=== PATIENT | male | born 1935 | race Caucasian/White ===

== ENCOUNTER 2020-07-05 08:03 | Outpatient (REF) | payer MEDICARE, SELFPAY ==
--- NOTE | 2020-07-05 13:27 | MHC.AU.AEV ---
Adult Audiological Evaluation AUD- Audiology Adult New Evaluation Start: 07/05/20 13:17 Freq: Status: Active Protocol: Activity Type Activity Date Activity User E-Sign Co-Sign Detail Recorded Client Recorded Date Recorded By Document 07/05/20 13:18 MANASA [id number] 07/05/20 13:26 MANASA 07/05/20 13:18 Adult Audiological Evaluation [Date of Visit] -Date of Visit 07/05/20 [Reason For Appointment] -Reason for Appointment Audiologic re- evaluation due to increasing difficulties understanding speech. -Does patient feel they have a hearing Yes loss? -If Yes, Which Ear? Both Ears [Previous Testing] -Has hearing been tested previously? Yes -Previous Hearing Test Results 06/07/2019 Borderline normal hearing levels at 250 Hz dropping to a moderately- severe high frequency sensorineural hearing loss with 88% speech understanding at 75 dB HL, both ears. [Medical History] -Medical History Dizziness or Unsteadiness -Medical History Jay Jay reports he has not experienced any further episodes of dizziness since last tested in 2019. [Otoscopy] -Otoscopy- Right Ear Unremarkable -Otoscopy- Left Ear Unremarkable [Tympanometry] -Tympanometry- Right Ear Normal Middle Ear System ( Type A) -Tympanometry- Left Ear Normal Middle Ear System ( Type A) [Hearing Test Methods] -Transducer(s) Used Insert Earphones,Bone Conduction -Method Conventional Audiometry -Stimuli Used Pure Tones [Hearing- Right Ear] -Description of Hearing- Right Ear Mild dropping to moderately- severe sensorineural hearing loss. [Hearing- Left Ear] -Description of Hearing- Left Ear Mild dropping to moderately- severe sensorineural hearing loss. [Speech Recognition Threshold (SRT)] -Method Used Monitored Live Voice -Stimuli Used Spondee Words -Speech Recognition Threshold (SRT)- 35 dB HL Right Ear -Speech Recognition Threshold (SRT)- 35 dB HL Left Ear [Word Discrimination] -Method: Recorded Lists -Word Lists Used: NU-6 -Word Discrimination- Right Ear 84% at 75 dB HL -Word Discrimination- Left Ear 80% at 75 dB HL [Compared to Most Recent Evaluation:] -Compared to most recent evaluation: There is no significant change in hearing thresholds and speech discrimination compared to 2019 results. [Recommendations] -Recommendations Audiological re -evaluation in one year.,Trial with amplification is recommended. ,Medical clearance from a physician is required before fitting.,A Hearing Aid Fitting has been scheduled. [Diagnosis] -Primary Diagnosis: H90.3 Bilateral Sensorineural Hearing Loss -Secondary Diagnosis: N/A [Services Performed] -Services Performed Comprehensive Audiological Evaluation (CPT 40524), Tympanometry ( CPT 53520) Signature [Signature] -Provider Juan David Irvin, [facility]
== END 2020-07-05 08:04 | disposition home or self-care (01) ==
LOC: HO.SH 08:03
PROVIDERS: Visit Provider Internal Medicine
DX: H90.3 Sensorineural hearing loss, bilateral (principal)
CPT/HCPCS: 92557; 92567

== ENCOUNTER 2020-07-24 09:57 | Outpatient (REF) | payer SELFPAY | END 2020-07-24 09:58 | disposition home or self-care (01) | LOC: HO.HAP 09:57 | PROVIDERS: PCP Internal Medicine; Visit Provider Internal Medicine | DX: Z46.1 Encounter for fitting and adjustment of hearing aid (principal) | CPT/HCPCS: 92700; V5260 ==

== ENCOUNTER 2020-08-07 11:25 | Outpatient (REF) | payer SELFPAY | END 2020-08-07 11:26 | disposition home or self-care (01) | LOC: HO.HAP 11:25 | PROVIDERS: PCP Internal Medicine; Referring Provider Internal Medicine; Visit Provider Internal Medicine | DX: Z13.89 Encounter for screening for other disorder (principal) | CPT/HCPCS: 92700 ==

== ENCOUNTER 2021-07-31 08:12 | Outpatient (REF) | payer MEDICARE, SELFPAY ==
--- NOTE | 2021-07-31 13:11 | MHC.AU.AHA ---
Adult Audiological Evaluation Date of Visit: 07/31/21 Reason for Appointment: Audiological re-evaluation to monitor the status of Mr. Iqbal's hearing loss. He has a known bilateral, sensorineural hearing loss and uses hearing aids binaurally. He denies any significant changes to his hearing or medical history since his last visit. [place] [facility] [place] Mild sloping to moderately-severe sensorineural hearing loss bilaterally. Medical History: Medical History: Dizziness or Unsteadiness Medical History: Has had some vertigo in the past, but none recently. High cholesterol. Hearing Instrument History- Right Ear: Snap Attacher: [employer] Model: Scrybe HS-R Serial Number: [id number] Battery Size: Rechargeable Repair Warranty: 08/14/2023 Loss and Damage Warranty: 08/14/2023 Dispensed By: [facility] Date of Fittin07/24/2020 Hearing Instrument History- Left Ear: Snap Attacher: [employer] Model: Scrybe HS-R Serial Number: [id number] Battery Size: Rechargeable Warranty: 08/14/2023 Loss and Damage Warranty: 08/14/2023 Dispensed By: [facility] Date of Fittin07/24/2020 Otoscopy: Right Ear: Unremarkable Left Ear: Unremarkable Tympanometry: Tympanometry performed due to: To assess integrity of the middle ear system Right Ear: Normal Middle Ear System (Type A) Left Ear: Normal Middle Ear System (Type A) Hearing Evaluation: Transducer(s) Used: Insert Earphones, Bone Conduction Method: Conventional Audiometry Stimuli Used: Pure Tones Right Ear: Description of Hearing: Normal hearing at 250 Hz, sloping to a mild to moderately-severe sensorineural hearing loss from 500-8000 Hz. Left Ear: Description of Hearing: Mild sloping to moderately-severe sensorineural hearing loss from 500-8000 Hz. Speech Recognition Threshold (SRT): Method Used: Monitored Live Voice Stimuli Used: Spondee Words Right Ear: 35 dBHL Left Ear: 35 dBHL Word Discrimination: Method: Recorded Lists Word Lists Used: NU-6 Right Ear: 88% at 75 dBHL Left Ear: 84% at 75 dBHL Comparison: Compared to the most recent evaluation: Hearing is stable. Recommendations: Audiological re-evaluation in one year. Hearing aid maintenance performed today. Hearing aid(s) reprogrammed with updated test results. Diagnosis: Primary Diagnosis: H90.3 Bilateral Sensorineural Hearing Loss Services Performed: Comprehensive Audiological Evaluation (CPT 86088) Tympanometry (CPT 64325) Signature: Provider: Juan David Paz, CCC-A
== END 2021-07-31 08:13 | disposition home or self-care (01) ==
LOC: HO.SH 08:12
PROVIDERS: Visit Provider Physician Assistant Medical
DX: H90.3 Sensorineural hearing loss, bilateral (principal)
CPT/HCPCS: 92557; 92567

== ENCOUNTER 2022-03-01 10:51 | Outpatient (REF) | payer SELFPAY | END 2022-03-01 10:52 | disposition home or self-care (01) | LOC: HO.HAP 10:51 | PROVIDERS: Visit Provider Internal Medicine | DX: Z46.1 Encounter for fitting and adjustment of hearing aid (principal); H90.3 Sensorineural hearing loss, bilateral | CPT/HCPCS: V5267 ==

== ENCOUNTER 2022-08-05 13:54 | Outpatient (REF) | payer SELFPAY ==
--- NOTE | 2022-08-07 08:25 | MHC.AU.HFU ---
Hearing Instrument Follow-Up- Binaural Date of Visit: 08/05/22 Right Ear: Lorena Sarmiento 1600 HS-R, #[id number] Repair Warranty: 08/14/2023 Loss and Damage Warranty: 08/14/2023 Service Plan: 08/14/2023 Battery Size: Rechargeable Type of Wax Guard: HearClear Dispensed By: [facility] Date of Fittin07/24/2020 Left Ear: Lorena Sarmiento 1600 HS-R, #[id number] Repair Warranty: 08/14/2023 Loss and Damage Warranty: 08/14/2023 Service Plan: 08/14/2023 Battery Size: Rechargeable Type of Wax Guard: Hear Clear Dispensed By: [facility] Date of Fittin07/24/2020 Follow-Up Summary: Patient reports that for the last week, his right hearing aid has been softer than his left one. He has tried cleaning them and changing the wax guards, but it did not help the sound. Hearing aids were both inspected. The right side was producing sound, but it is significantly weaker than it should be. No wax in receivers. No visible damage. Microphone filters changed- no difference in sound. Patient was given the left hearing aid back. The right side was sent to [facility] for repair under warranty. Recommendations: Patient will be contacted when materials have arrived. Diagnosis Code(s): Primary Diagnosis: H90.3 Bilateral Sensorineural Hearing Loss Signature: Provider: Andre Hanna, CCC-A
== END 2022-08-05 13:55 | disposition home or self-care (01) ==
LOC: HO.HAP 13:54
PROVIDERS: Visit Provider Physician Assistant Medical
DX: Z13.89 Encounter for screening for other disorder (principal)

== ENCOUNTER 2022-08-15 10:35 | Outpatient (REF) | payer SELFPAY | END 2022-08-15 10:36 | disposition home or self-care (01) | LOC: HO.HAP 10:35 | PROVIDERS: Visit Provider Internal Medicine | DX: Z13.89 Encounter for screening for other disorder (principal) ==

== ENCOUNTER 2023-02-18 07:48 | Outpatient (REF) | payer MEDICARE, SELFPAY ==
--- NOTE | 2023-02-18 10:07 | MHC.AU.HFU ---
Hearing Instrument Follow-Up- Binaural Date of Visit: 02/18/23 Right Ear: Lorena Sarmiento 1600 HS-R, #[id number], pink Repair Warranty: 08/14/2023 Loss and Damage Warranty: 08/14/2023 Service Plan: 08/14/2023 Battery Size: Rechargeable Type of Wax Guard: HearClear Dispensed By: [facility] Date of Fittin07/24/2020 Left Ear: Lorena Gouldio 1600 HS-R, #[id number], pink Repair Warranty: 08/14/2023 Loss and Damage Warranty: 08/14/2023 Service Plan: 08/14/2023 Battery Size: Rechargeable Type of Wax Guard: Hear Clear Dispensed By: [facility] Date of Fittin07/24/2020 Follow-Up Summary: The patient is here today for an updated audiogram and hearing aid check. Hearing is stable bilaterally- see audiogram for report. The patient reports his left hearing aid is not working well. Visual inspection reveals cerumen/debris in the left hearing aid wax guard. Right and left wax guards were replaced and the hearing aids were brushed. Listening check reveals improved sound bilaterally. Software update was performed. Data logging reveals 12 hours/day of use. No programming changes were made. The patient immediately reported improved sound. Reviewed cleaning and general hearing aid care. Recommended weekly brushing and replacing wax guards every 3-6 months. Reviewed hearing aid warranty expires 08/14/23 and charges associated once they are no longer in warranty. Patient indicated understanding. No charge today. Additional follow-up as needed. Diagnosis Code(s): Primary Diagnosis: H90.3 Bilateral Sensorineural Hearing Loss Signature: Provider: Juan David Suarez, [facility]
== END 2023-02-18 07:49 | disposition home or self-care (01) ==
LOC: HO.SH 07:48
PROVIDERS: Visit Provider Physician Assistant Medical
DX: H90.3 Sensorineural hearing loss, bilateral (principal)
CPT/HCPCS: 92557

== ENCOUNTER 2023-03-12 11:56 | Outpatient (REF) | payer MEDICARE, SELFPAY | END 2023-03-12 11:57 | disposition home or self-care (01) | LOC: HO.HAP 11:56 | PROVIDERS: Visit Provider Internal Medicine | DX: Z13.89 Encounter for screening for other disorder (principal) ==

== ENCOUNTER 2023-05-07 13:16 | Outpatient (REF) | payer SELFPAY | END 2023-05-07 13:17 | disposition home or self-care (01) | LOC: HO.HAP 13:16 | PROVIDERS: Visit Provider Internal Medicine | DX: Z13.89 Encounter for screening for other disorder (principal) ==

== ENCOUNTER 2023-07-18 08:47 | Outpatient (REF) | payer SELFPAY | END 2023-07-18 08:48 | disposition home or self-care (01) | LOC: HO.HAP 08:47 | PROVIDERS: Visit Provider Internal Medicine | DX: Z13.89 Encounter for screening for other disorder (principal) ==

== ENCOUNTER 2023-07-30 13:38 | Outpatient (REF) | payer SELFPAY | END 2023-07-30 13:39 | disposition home or self-care (01) | LOC: HO.HAP 13:38 | PROVIDERS: Visit Provider Internal Medicine | DX: Z13.89 Encounter for screening for other disorder (principal) ==

== ENCOUNTER 2024-07-05 11:18 | Outpatient (REF) | payer SELFPAY | END 2024-07-05 11:19 | disposition home or self-care (01) | LOC: HO.HAP 11:18 | PROVIDERS: Visit Provider Internal Medicine | DX: Z13.89 Encounter for screening for other disorder (principal) ==

== ENCOUNTER 2024-07-06 12:17 | Outpatient (REF) | payer SELFPAY | END 2024-07-06 12:18 | disposition home or self-care (01) | LOC: HO.HAP 12:17 | PROVIDERS: Visit Provider Physician Assistant Medical | DX: Z46.1 Encounter for fitting and adjustment of hearing aid (principal); H90.3 Sensorineural hearing loss, bilateral | CPT/HCPCS: 92593 ==

== ENCOUNTER 2024-07-08 09:54 | Outpatient (REF) | payer SELFPAY ==
--- NOTE | 2024-07-09 15:44 | MHC.AU.HA3 ---
Hearing Instrument Follow-Up- Binaural Date of Visit: 07/09/24 Right Ear: Model Kyler, Color, Serial Number: Lorena Sarmiento 1600 HS-R, #[id number], aneta [employer] Sorter Repair Warranty: 08/14/2023 Recyclable Products Sorter Loss and Damage Warranty: 08/14/2023 [facility] Service Plan: 08/14/2023 Battery Size: Rechargeable Rehabilitation Center Manager/Slim Tube: Earmold/Dome/CShell/SlimTip: Type of Wax Guard: HearClear Dispensed By: [facility] Date of Fittin07/24/2020 Left Ear: Model Kyler, Color, Serial Number: Lorena Sarmiento 1600 HS-R, #[id number], pink Rec[employer]able Products Sorter Repair Warranty: 08/14/2023 Recyclable Products Sorter Loss and Damage Warranty: 08/14/2023 [facility] Service Plan: 08/14/2023 Battery Size: Rechargeable Rehabilitation Center Manager/Slim Tube: Earmold/Dome/CShell/SlimTip: Type of Wax Guard: Hear Clear Dispensed By: [facility] Date of Fittin07/24/2020 Follow-Up Summary: Left aid dropped off, . Found wax guard clogged. Cleaned aid, replaced marck covers and wax guard. Listening check positive. Recommendations: Recommendations: Hearing instrument follow-up or maintenance as needed. Diagnosis Code(s): Primary Diagnosis: H90.3 Bilateral Sensorineural Hearing Loss Signature: Provider: Andre Montalvo, CCC-A
== END 2024-07-08 09:55 | disposition home or self-care (01) ==
LOC: HO.HAP 09:54
PROVIDERS: Visit Provider Internal Medicine
DX: Z13.89 Encounter for screening for other disorder (principal)

== ENCOUNTER 2024-07-09 16:20 | Outpatient (REF) | payer SELFPAY | END 2024-07-09 16:21 | disposition home or self-care (01) | LOC: HO.HAP 16:20 | PROVIDERS: Visit Provider Internal Medicine | DX: Z46.1 Encounter for fitting and adjustment of hearing aid (principal); H90.3 Sensorineural hearing loss, bilateral | CPT/HCPCS: 92593 ==

== ENCOUNTER 2025-01-24 10:50 | Outpatient (REF) | payer SELFPAY ==
--- OUTSIDE RECORDS SUMMARY | 2025-01-24 12:56 | XMS_ITS | Clinical Summary ---
Author Organization [address] Address [address] [place] [phone] Phone Care Team Providers Care 911 Emergency Services Dispatcher Name Role Phone Joel Clark Primary Care Provider [phone] [phone] Allergies Active Allergy Reactions Criticality Noted Date Comments Minocycline Hcl 08/06/2005 Other Reaction(s): Rash/Dermatitis Medications latanoprost (XALATAN) 0.005 % ophthalmic solution 04/26/2021 Active MULTIVITAMIN ORAL Take 1 Tab by mouth daily. Active aspirin 81 mg EC tablet 1 TABLET DAILY Active pravastatin (PRAVACHOL) 80 mg tablet Take 1 tablet (80 mg total) by mouth 1 (one) time each day. 90 tablet 3 12/03/2024 Active Active Problems Problem Noted Date Diagnosed Date Medical orders for life-sust aining treatment (MOLST) form in chart 12/07/2024 Overview (12/07/2024): MOLST form completed 12/07/2024 Cardiopulmonary resuscitation - attempt resuscitation Ventilation for a patient in respiratory distress - use noninvasive ventilation (CPAP) Transfer to hospital -transfer to hospital Dialysis - undecided Artificial nutrition - did not discuss Artificial hydration - use artificial nutrition but short term only Glaucoma 07/05/2024 Impaired fasting glucose 07/12/2011 Assessment & Plan (12/03/2024 3:28 PM EST): Orders: Lipid panel with reflex to direct LDL; Future Comprehensive metabolic panel; Future Hemoglobin A1c; Future Diverticulitis of colon without hemorrhage 07/22 Overview (07/05/2024): Diverticulosis of colon (without mention of hemorrhage) Incidental finding at colonoscopy 07/22/2008. Assessment & Plan (12/03/2024 3:28 PM EST): Orders: Lipid panel with reflex to direct LDL; Future Comprehensive metabolic panel; Future Hemoglobin A1c; Future Hyperlipidemia 08/06/2005 Overview (07/05/2024): Other and unspecified hyperlipidemia Assessment & Plan (12/03/2024 3:28 PM EST): Orders: Lipid panel with reflex to direct LDL; Future Comprehensive metabolic panel; Future Hemoglobin A1c; Future Encounters Date Type Department Care Team Description 12/03/2024 3:00 PM EST Office Visit Adult Medicine [address] [phone] Joel Clark PA Routine general medical examination at a health care facility (Primary Dx); Need for tetanus, diphtheria, and acellular pertussis (Tdap) vaccine; Need for vaccination against Streptococcus pneumoniae; Other hyperlipidemia; Impaired fasting glucose; Diverticulitis of colon without hemorrhage from Last 3 Months Immunizations Name Administration Dates Next Due H1N1 Inj Preservative Free 10/27/2009 Influenza trivalent, 0.5mL ( Fluad) 65yo and older 07/13/2024 Influenza trivalent, 0.5mL ( Fluzone High-dose) 65yo and older 08/12/2023,07/23/2022,08/20/2021,2017,07/08/2017 Influenza trivalent, with preservative (Fluzone; Afluria) 6mo and older 06/20/2016,07/13/2015,06/30/2014,2012,06/28/2011,06/22/2010,06/06/2009,1 ,07/19/2007,09/09/2006, 005 Pneumococcal conjugate 13 va lent (Prevnar 13, PCV13) 2mo and older 12/30/2014 Pneumococcal conjugate 20 va lent (Prevnar 20, PCV 20) 2mo and older 12/03/2024 RSV, bivalent, protein subun it RSVpreF, 0.5mL, Preservative Free (Arexvy) 60yo and older 02/07/2024 Td Tetanus diptheria (Tdvax) 7yo and older 11/17/2009,03/12/1999 Tdap Tetanus diptheria acell ular pertussis (Boostrix; Adacel) 7yo and older 12/03/2024 Zoster Live 06/29/2013 Zoster recombinant (Shingrix ) 19yo and older 06/05/2022,03/13/2022 Surgical History Surgery Date Site/Laterality Comments TONSILLECTOMY PROCEDURE: HISTORICAL TONSILLECTOMY OTHER SURGICAL HISTORY PROCEDURE: HISTORICAL CA BASAL CELL CATARACT EXTRACTION PROCEDURE: HISTORICAL CATARACT REMOVAL; COMMENT: on right COLONOSCOPY 01/20/2003 PROCEDURE: MD COLONOSCOPY FLX DX W/COLLJ SPEC WHEN PFRMD; COMMENT: Negative COLONOSCOPY W/ POLYPECTOMY 07/22/2008 PROCEDURE: MD COLSC FLX W/RMVL OF TUMOR POLYP LESION SNARE TQ; COMMENT: 2 small polyps: Tubular adenomas COLONOSCOPY 2012 PROCEDURE: MD COLONOSCOPY FLX DX W/COLLJ SPEC WHEN PFRMD; COMMENT: no polyps Medical History Medical History Date Comments Historical Medical DX DX:Other a nd unspecified malignant neoplasm of skin of other and unspecified parts of face Personal history of colonic polyps 08/06/2005 DX:Personal history of colonic polyps; COMMENT: Small polyp in the , negative colonoscopy 01/20/2003, diminutive polyps x 2 at colonoscopy 07/22/2008: Diverticulosis of colon (wit hout mention of hemorrhage) 07/22/2008 DX:Diverticulosis of colon ( without mention of hemorrhage); COMMENT: Incidental finding at colonoscopy 07/22/2008. Impaired fasting glucose 07/12/2011 DX:Impa ired fasting glucose Actinic keratosis, hx of DX:Acti yajaira keratosis, hx of History of basal cell carcinoma 08/06/2005 DX:History of basal cell carcinoma; COMMENT: BCC 12/11 nose (nodular) 11/03 nose (nodular), followed by drapery sewer hand Glaucoma DX:Glaucoma History of actinic keratoses 09/14/2009 DX: History of actinic keratoses; COMMENT: Actinic keratosis 09/06 left cheek Family History Medical History Relation Name Comments Other Dermatological Disorders Maternal Grandfather Specifics unknown....nonmelanotic cut. malig. by description Relation Name Status Comments Father (Age 69) mi dm Maternal Grandfather Mother (Age 75) dm Sister Alive Social History Tobacco Use Types Packs/Day Years Used Date Smoking Tobacco: Former Smokeless Tobacco: Never Alcohol Use Standard Drinks/Week Comments Yes 0 (1 standard drink = 0.6 oz pur e alcohol) Sex and Gender Information Value Date Recorded Sex Assigned at Not on file Legal Sex Male 5:20 PM EST Gender Identity Not on file Sexual Orientation Not on file Obstetrics History Last Filed Vital Signs Vital Sign Reading Time Taken Comments Blood Pressure 147/78 12/03/2024 2:49 PM EST provider will be recheck Pulse 64 12/03/2024 2:49 PM EST Temperature 36.5 ??C (97.7 ??F) 12/03/2024 2 :49 PM EST Respiratory Rate 16 12/03/2024 2:49 PM EST Oxygen Saturation 99% 08/19/2024 1:2 7 PM EST Inhaled Oxygen Concentration - - Weight 68.9 kg (152 lb) 12/03/2024 2:49 PM EST Height 157.5 cm (5' 2 ) 12/03/2024 2:49 PM EST Body Mass Index 27.8 12/03/2024 2:49 PM EST Plan of Treatment Upcoming Encounters Date Type Department Care Team (Late st Contact Info) Description 06/07/2025 8:45 AM EDT Office Visit Adult Medicine [facility] [address] [place] [address] Joel Clark PA [address] [place] [address] Health Maintenance Due Date Last Done Comments COVID-19 Vaccine ( season) 2024 10/30/2023, 01/03/2022, 08/20/2021, Additional history exists Depression Screening 12/03/2025 12/03/2024, 08/12/20 23 Falls Risk Assessment 12/03/2025 12/03/2024 Medicare Annual Wellness Visit 12/03/2025 12/03/2024 Social Influencers of Health Screening 12/03/2025 12/03/2024 Cholesterol Screening (Lipid Panel) 08/14/2028 08/14/2023 DTaP,Tdap,and Td Vaccines (4 - Td or Tdap) 12/03/2034 12/03/2024, 11/17/2009, 03/12/1999 Zoster Vaccines Completed 06/05/2022, 02/27, 06/29/2013 RSV Immunization Adult Patients Completed 02/07/2024 Influenza Vaccine Completed 07/13/2024, , 08/12/2023, Additional history exists Pneumococcal Vaccine: 50+ Years Completed 12/03/2024, 12/30/2014 HIB Vaccines Aged Out No longer eligi ble based on patient's age to complete this topic HPV Vaccines Aged Out No longer eligi ble based on patient's age to complete this topic Hepatitis A Vaccines Aged Out No long er eligible based on patient's age to complete this topic Hepatitis B Vaccines Aged Out No long er eligible based on patient's age to complete this topic IPV Vaccines Aged Out No longer eligi ble based on patient's age to complete this topic MMR Vaccines Aged Out No longer eligi ble based on patient's age to complete this topic Meningococcal ACWY Vaccine Aged Out N o longer eligible based on patient's age to complete this topic Meningococcal B Vaccine Aged Out No l onger eligible based on patient's age to complete this topic RSV Immunization Patients Under 20 months Aged Out No longer eligible based on patient's age to complete this topic Varicella Vaccines Aged Out No longer eligible based on patient's age to complete this topic Procedures Procedure Name Priority Date/Time Associated Diagnosis Comments LIPID PANEL Routine 08/14/2023 DEPRESSION SCREENING Routine 08/12/2023 from Last 3 Months or Most Recently Relevant to Health Maintenance Results * (ABNORMAL) Lipid panel (08/14/2023) LDL/HDL Ratio 4 0 - 4 Triglycerides 196(A) 0 - 150 mg/dL Cholesterol 162 0 - 200 mg/dL HDL 45 >=40 mg/dL LDL Cholesterol 78 0 - 100 mg/dL Blood Venous blood specimen / Unknown Historical Provider LAB BLOOD ORDERABLES Kiara l Result * Depression Screening (08/12/2023) 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
== END 2025-01-24 10:51 | disposition home or self-care (01) ==
LOC: HO.HAP 10:50
PROVIDERS: Visit Provider Internal Medicine
DX: Z46.1 Encounter for fitting and adjustment of hearing aid (principal)
CPT/HCPCS: V5267

== ENCOUNTER 2025-05-05 11:39 | Outpatient (REF) | payer SELFPAY ==
--- OUTSIDE RECORDS SUMMARY | 2025-05-05 12:16 | XMS_ITS | Clinical Summary ---
Author Organization [address] Address [address] [place] [phone] Phone Care Team Providers Care Trackmobile Operator Name Role Phone Joel Clark Primary Care Provider [phone] [phone] Allergies Active Allergy Reactions Criticality Noted Date Comments Minocycline Hcl 08/06/2005 Other Reaction(s): Rash/Dermatitis Medications latanoprost (XALATAN) 0.005 % ophthalmic solution 04/26/2021 Active MULTIVITAMIN ORAL Take 1 Tab by mouth daily. Active aspirin 81 mg EC tablet 1 TABLET DAILY Active pravastatin (PRAVACHOL) 80 mg tablet TAKE 1 TABLET BY MOUTH DAILY 90 tablet 03/01/2025 Active Active Problems Problem Noted Date Diagnosed [...] Comprehensive metabolic panel; Future Hemoglobin A1c; Future Immunizations Name Administration Dates Next Due H1N1 [...] REMOVAL; COMMENT: on right COLONOSCOPY 01/20/2003 PROCEDURE: DE COLONOSCOPY FLX DX W/COLLJ SPEC WHEN PFRMD; COMMENT: Negative COLONOSCOPY W/ POLYPECTOMY 07/22/2008 PROCEDURE: DE COLSC FLX W/RMVL OF TUMOR POLYP LESION SNARE TQ; COMMENT: 2 small polyps: Tubular adenomas COLONOSCOPY 2013 PROCEDURE: DE COLONOSCOPY FLX DX W/COLLJ SPEC WHEN PFRMD; COMMENT: no polyps Medical History Medical History Date Comments Historical Medical DX DX:Other a nd unspecified malignant neoplasm of skin of other and unspecified parts of face Personal history of colonic polyps 08/06/2005 DX:Personal history of colonic polyps; COMMENT: Small polyp in the 1990s, negative colonoscopy 01/20/2003, diminutive polyps x 2 [...] nose (nodular) 11/03 nose (nodular), followed by medical receptionist medical assistant Glaucoma DX:Glaucoma History of actinic keratoses 09/14/2009 [...] 64 12/03/2024 2:49 PM EST Temperature 36.5 C (97.7 F) 12/03/2024 2:49 PM EST Respiratory Rate 16 12/03/2024 2:49 [...] 8:45 AM EDT Office Visit Adult Medicine [facility] [address] [place] [address] Joel Clark PA [address] [place] [address] Health Maintenance Due Date Last Done Comments COVID-19 Vaccine ( season) 2024 10/30/2023, 01/03/2022, 08/20/2021, Additional history exists Influenza Vaccine (#1) 2025 , 10/09/2023, 08/12/2023, Additional history exists Falls Risk Assessment 12/03/2025 12/03/2024 Medicare Annual Wellness Visit 12/03/2025 12/03/2024 Social Influencers of Health Screening 12/03/2025 12/03/2024 Cholesterol Screening (Lipid Panel) 08/14/2028 08/14/2023 DTaP,Tdap,and Td Vaccines (4 - Td or Tdap) 12/03/2034 12/03/2024, 11/17/2009, 03/12/1999 Zoster Vaccines Completed 06/05/2022, 02/27, 06/29/2013 RSV Immunization Adult Patients Completed 02/07/2024 Depression Screening Completed 12/03/2024, 08/12/20 23 Pneumococcal Vaccine: 50+ Years Completed 12/03/2024, 12/30/2014 [...] mg/dL Blood Venous blood specimen / Unknown us Historical Provider LAB BLOOD ORDERABLES Kiara l Result * Depression Screening (08/12/2023) Depression Screening Abstracted us Historical Provider MD HEALTH MAINTENANCE Final Result from Last 3 Months or Most Recently Relevant to Health Maintenance Insurance MEDICARE [facility] Advance Directives Documents on File Type Date Recorded 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
--- OUTSIDE RECORDS SUMMARY | 2025-05-05 12:16 | XMS_ITS ---
[facility] Name [facility] Organization Unknown Care Team Organization Name Specialty Phone Email Start Date End Da te [facility] Joel Clark Primary Care 08/06/2022
--- NOTE | 2025-05-05 12:36 | MHC.AU.HA3 ---
Hearing Instrument Follow-Up- Binaural Date of Visit: 05/05/25 Right Ear: Kyler, Model, Color, Serial Number: Lorena Sarmiento 1600 HS-R, #[id number], pink Track Template Maker Repair Warranty: 08/14/2023 Track Template Maker Loss and Damage Warranty: 08/14/2023 [facility] Service Plan: 08/14/2023 Battery Size: Rechargeable Type of Wax Guard: HearClear Dispensed By: [facility] Date of Fittin07/24/2020 Left Ear: Kyler, , Color, Serial Number: Lorena Sarmiento 1600 HS-R, #[id number], pink Track Template Maker Repair Warranty: 08/14/2023 Track Template Maker Loss and Damage Warranty: 08/14/2023 [facility] Service Plan: 08/14/2023 Battery Size: Rechargeable Type of Wax Guard: Hear Clear Dispensed By: [facility] Date of Fittin07/24/2020 Follow-Up Summary: Left WILKERSON d/o. C/o weak . Found debris in wax guard. Cleaned aid. Replaced wax guard and marck covers. Ran through dehumidifier. Listening check positive. Recommendations: Recommendations: Hearing instrument follow-up or maintenance as needed. Diagnosis Code(s): Primary Diagnosis: H90.3 Bilateral Sensorineural Hearing Loss Signature: Provider: Andre Montalvo, [facility]
== END 2025-05-05 11:40 | disposition home or self-care (01) ==
LOC: HO.SH 11:39
PROVIDERS: Visit Provider Internal Medicine
DX: H90.3 Sensorineural hearing loss, bilateral (principal)
CPT/HCPCS: 92593

== ENCOUNTER 2025-05-17 14:59 | Outpatient (REF) | payer SELFPAY ==
--- OUTSIDE RECORDS SUMMARY | 2025-05-17 16:21 | XMS_ITS | Clinical Summary ---
Author Organization [address] Address [address] [place] [phone] Phone Care Team Providers Care Grain Ii Farmworker Name Role Phone Joel Clark Primary Care Provider +1 [phone] Allergies Active Allergy Reactions Criticality Noted Date [...] REMOVAL; COMMENT: on right COLONOSCOPY 01/20/2003 PROCEDURE: KS COLONOSCOPY FLX DX W/COLLJ SPEC WHEN PFRMD; COMMENT: Negative COLONOSCOPY W/ POLYPECTOMY 07/22/2008 PROCEDURE: KS COLSC FLX W/RMVL OF TUMOR POLYP LESION SNARE TQ; COMMENT: 2 small polyps: Tubular adenomas COLONOSCOPY 2013 PROCEDURE: KS COLONOSCOPY FLX DX W/COLLJ SPEC WHEN PFRMD; [...] nose (nodular) 11/03 nose (nodular), followed by spring former machine Glaucoma DX:Glaucoma History of actinic keratoses 09/14/2009 [...] 8:45 AM EDT Office Visit Adult Medicine [facility] [address] [place] [address] Joel Clark PA [address] [place] [address] Health Maintenance Due Date Last Done Comments [...] Recently Relevant to Health Maintenance Insurance MEDICARE [facility] Advance Directives Documents on File Type Date Recorded Patient Transportation Security Officer Expl anation Advance Directives and Livin g Will 12/08/2024 8:50 AM [facility] Care Teams Grain Ii Farmworker Relationship Specialty Start Date End Date Joel Clark PA [address] [place] [address] PCP - General Internal Medicine 03/19/21
== END 2025-05-17 15:00 | disposition home or self-care (01) ==
LOC: HO.HAP 14:59
PROVIDERS: PCP Internal Medicine; Visit Provider Internal Medicine
DX: Z13.89 Encounter for screening for other disorder (principal)

== ENCOUNTER 2025-09-16 10:28 | Outpatient (REF) | payer SELFPAY ==
--- OUTSIDE RECORDS SUMMARY | 2025-09-16 12:04 | XMS_ITS | Clinical Summary ---
Author Organization [address] Address [address] [place] [phone] Phone Care Team Providers Care Complaint Evaluation Supervisor Name Role Phone Joel Clark Primary Care Provider [phone] [phone] Allergies Active Allergy Reactions Criticality Noted Date Comments Minocycline Hcl 08/06/2005 Other Reaction(s): Rash/Dermatitis Medications latanoprost (XALATAN) 0.005 % ophthalmic solution 1 Active MULTIVITAMIN ORAL Take 1 Tab by mouth daily. Active aspirin 81 mg EC tablet 1 TABLET DAILY Active pravastatin (PRAVACHOL) 80 mg tablet Take 1 tablet (80 mg total) by mouth 1 (one) time each day. 90 tablet 3 5 Active pravastatin (PRAVACHOL) 80 mg tablet TAKE 1 TABLET BY MOUTH DAILY 90 tablet 5 08/19/20 25 Discontinu ed(Reorder ) Active Problems Problem Noted Date Diagnosed Date [...] Encounters Date Type Department Care Team Description 08/30/2025 Results Follow-Up Adult [address] [phone] Paula Charlton PA 08/26/2025 10:30 AM EST Lab Draw Station [address] Hypocalcemia 08/19/2025 8:05 AM EST Lab Draw Station [address] Need for tetanus, diphtheria, and acellular pertussis (Tdap) vaccine; Need for vaccination against Streptococcus pneumoniae; Other hyperlipidemia; Impaired fasting glucose; Diverticulitis of colon without hemorrhage 08/19/2025 7:30 AM EST Office Visit Adult Medicine [address] [phone] Paula Charlton PA Mixed hyperlipidemia (Primary Dx); Prediabetes; Elevated blood pressure reading; Uses hearing aid; Need for prophylactic vaccination and inoculation against influenza 08/19/2025 Results Follow-Up Adult Medicine [address] [phone] Joel Clark PA from Last 3 Months Immunizations Immunization Administration Dates Next Due H1N1 Inj Preservative Free 10/27/2009 Influenza trivalent, 0.5mL ( Fluad) 65yo and older 08/19/2025,07/13/2024 Influenza trivalent, 0.5mL ( Fluzone High-dose) 65yo and older 08/12/2023,07/23/2022,08/20/2021,2017,07/08/2017 Influenza trivalent, with preservative (Fluzone; Afluria) 6mo and older 06/20/2016,07/13/2015,06/30/2014,2012,06/28/2011,06/22/2010,06/06/2009,1 ,07/19/2007,09/09/2006, 005 Pneumococcal conjugate 13 va lent (Prevnar 13, PCV13) 2mo and older 12/30/2014 Pneumococcal conjugate 20 va lent (Prevnar 20, PCV 20) 2mo and older 12/03/2024 RSV, bivalent, protein subun it RSVpreF, 0.5mL, Preservative Free (Arexvy) 50yo and older 02/07/2024 Td Tetanus diptheria (Tdvax) [...] REMOVAL; COMMENT: on right COLONOSCOPY 01/20/2003 PROCEDURE: PA COLONOSCOPY FLX DX W/COLLJ SPEC WHEN PFRMD; COMMENT: Negative COLONOSCOPY W/ POLYPECTOMY 07/22/2008 PROCEDURE: PA COLSC FLX W/RMVL OF TUMOR POLYP LESION SNARE TQ; COMMENT: 2 small polyps: Tubular adenomas COLONOSCOPY 2012 PROCEDURE: PA COLONOSCOPY FLX DX W/COLLJ SPEC WHEN PFRMD; [...] nose (nodular) 11/03 nose (nodular), followed by ships or barges loader Glaucoma DX:Glaucoma History of actinic keratoses 09/14/2009 [...] Date Smoking Tobacco: Former Smokeless Tobacco: Never Tobacco Cessation:Counseling Given: Not Answered Alcohol Use Standard Drinks/Week Comments Yes 0 (1 standard drink = 0.6 oz pur e alcohol) Sex and Gender Information Value Date Recorded Sex Assigned at Not on file Legal Sex Male 5:20 PM EST Gender Identity Not on file Sexual Orientation Not on file Last Filed Vital Signs Vital Sign Reading Time Taken Comments Blood Pressure 136/70 08/19/2025 7:48 AM EST Pulse 60 08/19/2025 7:32 AM EST Temperature 36.9 C (98.4 F) 08/19/2025 7:32 AM EST Respiratory Rate 14 08/19/2025 7:32 AM EST Oxygen Saturation 96% 08/19/2025 7:32 AM EST Inhaled Oxygen Concentration - - Weight 69.4 kg (153 lb) 08/19/2025 7:32 AM EST Height 154.9 cm (5' 1 ) 08/19/2025 7:32 AM EST Body Mass Index 28.91 08/19/2025 7:32 AM EST Plan of Treatment Health Maintenance Due Date Last Done Comments COVID-19 Vaccine ( season) 2025 10/30/2023, 01/03/2022, 08/20/2021, Additional history exists Falls Risk Assessment 12/03/2025 12/03/2024 Medicare Annual Wellness Visit 12/03/2025 12/03/2024 Social Influencers of Health Screening 12/03/2025 12/03/2024 Cholesterol Screening (Lipid Panel) 08/19/2030 08/19/2025, 08/14/2023 DTaP,Tdap,and Td Vaccines (4 - Td or Tdap) 12/03/2034 12/03/2024, 11/17/2009, 03/12/1999 Zoster Vaccines Completed 06/05/2022, 02/27, 06/29/2013 RSV Immunization Adult Patients Completed 02/07/2024 Depression Screening Completed 12/03/2024, 08/12/20 Pneumococcal Vaccine: 50+ Years Completed 12/03/2024, 12/30/2014 Influenza Vaccine Completed 08/19/2025, , 10/09/2023, Additional history exists HIB Vaccines Aged Out No longer eligi [...] Procedure Name Priority Date/Time Associated Diagnosis Comments CALCIUM, IONIZED Routine 08/26/2025 10:3 1 AM EST Hypocalcemia LIPID PANEL WITH REFLEX TO DIRECT LDL Routine 08/19/2025 8:14 AM EST Need for tetanus, diphtheria, and acellular pertussis (Tdap) vaccine Need for vaccination against Streptococcus pneumoniae Other hyperlipidemia Impaired fasting glucose Diverticulitis of colon without hemorrhage COMPREHENSIVE METABOLIC PANEL Routine 08/19/2025 8:14 AM EST Need for tetanus, diphtheria, and acellular pertussis (Tdap) vaccine Need for vaccination against Streptococcus pneumoniae Other hyperlipidemia Impaired fasting glucose Diverticulitis of colon without hemorrhage HEMOGLOBIN A1C Routine 08/19/2025 8:14 AM EST Need for tetanus, diphtheria, and acellular pertussis (Tdap) vaccine Need for vaccination against Streptococcus pneumoniae Other hyperlipidemia Impaired fasting glucose Diverticulitis of colon without hemorrhage DEPRESSION SCREENING Routine 08/12/2023 from Last 3 Months or Most Recently Relevant to Health Maintenance Results * Calcium, ionized (08/26/2025 10:31 AM EST) Calcium Ionized 5.0 4.6 - 5.4 mg/dL 08/30/2025 9:41 AM EST [facility] Comment: Test performed at [facility], [address], [place] [address] Esther Stoll MD, PhD - Independent Contractor Blood Venous blood specimen / Unknown Venipuncture / Unknown 08/26/2025 10:31 AM EST 08/26/2025 10:31 AM EST us Paula Zoltan [facility] BLOOD ORDERABLES Final Resul t [facility] [address] [place] [address] * (ABNORMAL) Lipid panel with reflex to direct LDL (08/19/2025 8:14 AM EST) Cholesterol 138 0 - 200 mg/dL 08/19/2025 10:28 AM EST [facility] Triglycerides 225(H) 0 - 150 mg/dL 08/19/2025 10:28 AM EST [facility] HDL 50 >=40 mg/dL 08/19/2025 10:28 AM [facility] LDL Calculated 43 0 - 100 mg/dL 08/19/2025 10:28 AM [facility] Comment:Estimated LDL Calcul ated using equation: Total cholesterol - HDL cholesterol - (Triglycerides/5) VLDL Cholesterol Hever 45 mg/dL 08/19/2025 10:28 AM [facility] Non HDL Chol. (LDL+VLDL) 88 <145 mg/dL 08/19/2025 10:28 AM [facility] Chol/HDL Ratio 2.8 0.0 - 4.4 08/19/2025 10:28 AM [facility] Blood Venous blood specimen / Unknown Venipuncture / Unknown 08/19/2025 8:14 AM EST 08/19/2025 8:14 AM EST Joel [facility] BLOOD ORDERABLES Kiara l Result [facility] [address] [place] [address], * Hemoglobin A1c (08/19/2025 8:14 AM EST) Hemoglobin A1C 6.0 <6.5 % LAB CHEMISTRY METHOD 08/19/2025 1:42 PM [facility] Mean Bld Glu Estim. 126 mg/dL LAB CHEMISTRY METHOD 08/19/2025 1:42 PM [facility] Blood Venous blood specimen / Unknown Venipuncture / Unknown 08/19/2025 8:14 AM EST 08/19/2025 8:14 AM EST Joel [facility] BLOOD ORDERABLES Kiara l Result [facility] [address] [place] [address], * (ABNORMAL) Comprehensive metabolic panel (08/19/2025 8:14 AM EST) Sodium 141 133 - 145 mmol/L 08/19/2025 10:27 AM [facility] Potassium 4.4 3.5 - 5.5 mmol/L 08/19/2025 10:27 AM [facility] Chloride 104 96 - 110 mmol/L 08/19/2025 10:27 AM [facility] CO2 30 21 - 32 mmol/L 08/19/2025 10:27 AM [facility] Anion Gap 7 3 - 11 08/19/2025 10:27 AM [facility] Glucose 111(H) 70 - 100 mg/dL 08/19/2025 10:27 AM [facility] BUN 16 5 - 25 mg/dL 08/19/2025 10:27 AM [facility] Creatinine 1.23 0.70 - 1.30 mg/dL 08/19/2025 10:27 AM [facility] eGFR 56(L) >=60 mL/min/1. 73m2 08/19/2025 10:27 AM [facility] Comment:Calculation based on the Chronic Kidney Disease Epidemiology Collaboration (CKD-EPI) equation refit without adjustment for race. BUN/Creatinine Ratio 13.0 08/19/2025 10:27 AM [facility] Calcium 8.1(L) 8.5 - 10.5 mg/dL 08/19/2025 10:27 AM [facility] AST (SGOT) 22 10 - 42 unit/L 08/19/2025 10:27 AM [facility] ALT (SGPT) 21 10 - 60 unit/L 08/19/2025 10:27 AM [facility] Alkaline Phosphatase 107 42 - 121 unit/L 08/19/2025 10:27 AM EST [facility] Total Protein 6.5 6.0 - 8.0 g/dL 08/19/2025 10:27 AM EST [facility] Albumin 3.7 3.2 - 5.0 g/dL 08/19/2025 10:27 AM [facility] Total Bilirubin 0.6 0.0 - 1.4 mg/dL 08/19/2025 10:27 AM EST [facility] Blood Venous blood specimen / Unknown Venipuncture / Unknown 08/19/2025 8:14 AM EST 08/19/2025 8:14 AM EST Joel [facility] BLOOD ORDERABLES Kiara chatman Result [facility] [address] [place] [address], * Depression Screening (08/12/2023) [facility] Depression Screening Abstracted Historical Provider HEALTH MAINTENANCE Final Result from Last 3 Months or Most Recently Relevant to Health Maintenance Insurance MEDICARE [facility] Advance Directives Documents on File Type Date Recorded Patient Research Agricultural Engineer Expl anation Advance Directives and Livin g Will 12/08/2024 8:50 AM [facility] Care Teams Complaint Evaluation Supervisor Relationship Specialty Start Date End Date Joel Clark PA [address] [place] [address] PCP - General Internal Medicine 03/19/21
--- OUTSIDE RECORDS SUMMARY | 2025-09-16 12:04 | XMS_ITS | Encounter Summary ---
Author Organization [facility] Address [address] [place] [address] Care Team Providers Care Film Drying Machine Operator Name Role Phone Joel Clark Primary Care Provider [phone] [phone] Encounter Details Date Type Department Care Team (Late st Contact Info) Description 08/30/2025 Results Follow-Up Adult Medicine [facility] [address] [place] [address] Paula Charlton PA [address] [place], [place] Social History Tobacco Use Types Packs/Day Years Used Date Smoking Tobacco: Former Smokeless Tobacco: Never Alcohol Use Standard Drinks/Week Comments Yes 0 (1 standard drink = 0.6 oz pur e alcohol) Sex and Gender Information Value Date Recorded Sex Assigned at Not on file Legal Sex Male 5:20 PM EST Gender Identity Not on file Sexual Orientation Not on file documented as of this encounter Plan of Treatment Not on file documented as of this encounter Visit Diagnoses Not on filedocumented in this encounter Additional Health Concerns Assessment Noted Time PHQ-9 Depression Total Score: 0 12/04/19 25 2:51 PM EST A fall risk assessment has been complete d for the patient 12/03/2024 2:50 PM EST documented as of this encounter Care Teams Film Drying Machine Operator Relationship Specialty Start Date End Date Joel Clark PA [address] [place] [address] PCP - General Internal Medicine 03/19/21 documented as of this encounter
--- OUTSIDE RECORDS SUMMARY | 2025-09-16 12:04 | XMS_ITS | Encounter Summary ---
Author Organization [facility] Address [address] [place] [address] Care Team Providers Care Job Change Crew Member Name Role Phone Joel Clark Primary Care Provider [phone] [phone] Encounter Details Date Type Department Care Team (Late st Contact Info) Description 08/19/2025 Results Follow-Up Adult Medicine [address] [phone] Joel Clark PA [address] [place] [address] Social History Tobacco Use Types Packs/Day Years [...] on file documented as of this encounter Progress Notes * ROLANOD Cuellar - 08/23/2025 8:20 AM EST Can you call patient and inform him of the following: Triglycerides are elevated, consistent with previous labs. The rest of his cholesterol levels are controlled. I recommend fish oil [id number]. Kidney function is stable. Calcium level is low which is new for him. I ordered a follow-up lab called ionized calcium which he can get done whenever. Liver function tests are normal. He does not have diabetes however his hemoglobin A1c is 6.0%, slightly worsened compared to 2 yearsago at 5.8%. I recommend a low-carb diet. * ROLANDO Cuellar - 08/23/2025 8:20 AM EST ----- Message from ROLANDO Mary sent at 08/19/2025 6:29 PM EST ----- Seen by my colleague ----- Message ----- From: Lab, Background User Sent: 08/19/2025 10:27 AM EST To: ROLANDO Santamaria documented in this encounter Plan of Treatment Not on file documented as of this encounter Results * Calcium, ionized (08/26/2025 10:31 AM EST) Calcium Ionized 5.0 4.6 - 5.4 mg/dL 08/30/2025 9:41 AM EST [facility] Comment: Test performed at [facility], [address], [place] [address] Esther Stoll MD, PhD - Freight And Passenger Agent Blood Venous blood specimen / Unknown Venipuncture / Unknown 08/26/2025 10:31 AM EST 08/26/2025 10:31 AM EST us Paula [facility] BLOOD ORDERABLES Final Resul t [facility] [address] [place] [address] documented in this encounter Visit Diagnoses Diagnosis Hypocalcemia- Primary documented in this encounter Additional Health Concerns Assessment Noted Time PHQ-9 Depression Total Score: 0 12/04/19 2:51 PM EST A fall risk assessment has been complete d for the patient 12/03/2024 2:50 PM EST documented as of this encounter Care Teams Job Change Crew Member Relationship Specialty Start Date End Date Joel Clark PA [address] [place] [phone] PCP - General Internal Medicine 03/19/21 documented as of this encounter
== END 2025-09-16 10:29 | disposition home or self-care (01) ==
LOC: HO.HAP 10:28
PROVIDERS: Visit Provider Internal Medicine
DX: Z46.1 Encounter for fitting and adjustment of hearing aid (principal)
CPT/HCPCS: V5267

== ENCOUNTER 2025-09-20 09:34 | Outpatient (REF) | payer SELFPAY ==
--- OUTSIDE RECORDS SUMMARY | 2025-09-20 10:22 | XMS_ITS | Encounter Summary ---
Author Organization [facility] Address [address] [place] [address] Care Team Providers Care Pathology Specialist Name Role Phone Joel Clark Primary Care Provider [phone] [phone] Encounter Details Date Type Department Care Team (Late st Contact Info) Description 08/30/2025 Results Follow-Up Adult Medicine [facility] [address] [place] [address] Paula Charlton PA [address] [place], [place] Social History Tobacco Use Types Packs/Day [...] documented as of this encounter Care Teams Pathology Specialist Relationship Specialty Start Date End Date Joel Clark PA [address] [place] [address] PCP - General Internal Medicine 03/19/21 documented as of this encounter
--- OUTSIDE RECORDS SUMMARY | 2025-09-20 10:22 | XMS_ITS | Encounter Summary ---
Author Organization [employer] Address [address] [place] [address] Care Team Providers Care Plant Production Worker Name Role Phone Joel Clark Primary Care Provider [phone] [phone] Encounter Details Date Type Department Care Team (Late st Contact Info) Description 08/19/2025 Results Follow-Up Adult Medicine [address] [phone] Joel Clark PA [address] [place] [address] Social History Tobacco Use Types [...] as of this encounter Progress Notes * ROLANDO Cuellar - 08/23/2025 8:20 AM EST Can you call patient and inform him of the following: Triglycerides are elevated, consistent with previous labs. The rest of his cholesterol levels are controlled. I recommend fish oil [id number]. Kidney function is stable. Calcium level is [...] EST [facility] Comment: Test performed at [facility], [address], [place] [address] Esther Stoll MD, PhD - City Planning Aide Blood Venous blood specimen / Unknown Venipuncture / Unknown 08/26/2025 10:31 AM EST 08/26/2025 10:31 AM EST us Paula [facility] BLOOD ORDERABLES Final Resul t [facility] [address] [place] [address] documented in this encounter Visit Diagnoses Diagnosis Hypocalcemia- Primary documented in this encounter Additional Health Concerns Assessment Noted Time PHQ-9 Depression Total Score: 0 12/04/19 2:51 PM EST A fall risk assessment has been complete d for the patient 12/03/2024 2:50 PM EST documented as of this encounter Care Teams Plant Production Worker Relationship Specialty Start Date End Date Joel Clark PA [address] [place] [id number] PCP - General Internal Medicine 03/19/21 documented as of this encounter
--- OUTSIDE RECORDS SUMMARY | 2025-09-20 10:22 | XMS_ITS | Clinical Summary ---
Author Organization [address] Address [address] [place] [id number] Phone Care Team Providers Care Plan Consultant Name Role Phone Joel Clark Primary Care Provider [phone] Allergies Active Allergy Reactions Criticality Noted Date Comments Minocycline Hcl 08/06/2005 Other Reaction(s): Rash/Dermatitis Medications latanoprost (XALATAN) 0.005 % ophthalmic solution 04/26/2021 Active MULTIVITAMIN ORAL Take 1 Tab by mouth daily. Active aspirin 81 mg EC tablet 1 TABLET DAILY Active pravastatin (PRAVACHOL) 80 mg tablet Take 1 tablet (80 mg total) by mouth 1 (one) time each day. 90 tablet 3 08/19/2025 Active Active Problems Problem Noted Date Diagnosed [...] Care Team Description 08/30/2025 Results Follow-Up Adult Medicine [address] [phone] Paula Charlton PA 08/26/2025 10:30 AM EST Lab Draw Station [address] Hypocalcemia 08/19/2025 8:05 AM EST Lab Draw Station - [address] Need for tetanus, diphtheria, and acellular pertussis (Tdap) vaccine; Need for vaccination against Streptococcus pneumoniae; Other hyperlipidemia; Impaired fasting glucose; Diverticulitis of colon without hemorrhage 08/19/2025 7:30 AM EST Office Visit Adult Medicine [address] [phone] Paula Charlton PA Mixed hyperlipidemia (Primary Dx); Prediabetes; Elevated blood pressure reading; Uses hearing aid; Need for prophylactic vaccination and inoculation against influenza 08/19/2025 Results Follow-Up Adult Medicine [address] [phone] Joel Clark PA from Last 3 Months [...] REMOVAL; COMMENT: on right COLONOSCOPY 01/20/2003 PROCEDURE: SC COLONOSCOPY FLX DX W/COLLJ SPEC WHEN PFRMD; COMMENT: Negative COLONOSCOPY W/ POLYPECTOMY 07/22/2008 PROCEDURE: SC COLSC FLX W/RMVL OF TUMOR POLYP LESION SNARE TQ; COMMENT: 2 small polyps: Tubular adenomas COLONOSCOPY 2012 PROCEDURE: SC COLONOSCOPY FLX DX W/COLLJ SPEC WHEN PFRMD; [...] nose (nodular) 11/03 nose (nodular), followed by fruit i farmworker Glaucoma DX:Glaucoma History of actinic keratoses 09/14/2009 [...] fasting glucose Diverticulitis of colon without hemorrhage HM DEPRESSION SCREENING Routine 08/12/2023 from Last 3 Months or Most Recently Relevant to Health Maintenance Results * Calcium, ionized (08/26/2025 10:31 AM EST) Calcium Ionized 5.0 4.6 - 5.4 mg/dL 08/30/2025 9:41 AM EST [facility] Comment: Test performed at [facility], [address], [place] [address] Esther Stoll MD, PhD - Remote Pilot Operator Blood Venous blood specimen / Unknown Venipuncture / Unknown 08/26/2025 10:31 AM EST 08/26/2025 10:31 AM EST us Paula Zoltan PA LAB BLOOD ORDERABLES Final Resul t [facility] [address] [place] [address] * (ABNORMAL) Lipid panel with reflex to direct LDL (08/19/2025 8:14 AM EST) Cholesterol 138 0 - 200 mg/dL 08/19/2025 10:28 AM EST [facility] Triglycerides 225(H) 0 - 150 mg/dL 08/19/2025 10:28 AM EST [facility] HDL 50 >=40 mg/dL 08/19/2025 10:28 AM EST [facility] LDL Calculated 43 0 - 100 mg/dL 08/19/2025 10:28 AM [facility] Comment:Estimated LDL Calcul ated using equation: Total cholesterol - HDL cholesterol - (Triglycerides/5) VLDL Cholesterol Hever 45 mg/dL 08/19/2025 10:28 AM [facility] Non HDL Chol. (LDL+VLDL) 88 <145 mg/dL 08/19/2025 10:28 AM [facility] Chol/HDL Ratio 2.8 0.0 - 4.4 08/19/2025 10:28 AM [facility] Blood Venous blood specimen / Unknown Venipuncture / Unknown 08/19/2025 8:14 AM EST 08/19/2025 8:14 AM EST Joel MARSHALL LAB BLOOD ORDERABLES Kiara l Result Performing Organization Address City/[facility]/ZIP Co de Phone Number [facility] [address] [place] [address], [place] [phone] * Hemoglobin A1c (08/19/2025 8:14 AM EST) Hemoglobin A1C 6.0 <6.5 % LAB CHEMISTRY METHOD 08/19/2025 1:42 PM [facility] Mean Bld Glu Estim. 126 mg/dL LAB CHEMISTRY METHOD 08/19/2025 1:42 PM [facility] Blood Venous blood specimen / Unknown Venipuncture / Unknown 08/19/2025 8:14 AM EST 08/19/2025 8:14 AM EST Joel MARSHALL LAB BLOOD ORDERABLES Kiara l Result Performing Organization Address City/[facility]/ZIP Co de Phone Number [facility] [address] [place] [address], [place] [phone] * (ABNORMAL) Comprehensive metabolic panel (08/19/2025 8:14 AM EST) [facility] Signature Sodium 141 133 - 145 mmol/L 08/19/2025 10:27 AM [facility] Potassium 4.4 3.5 - 5.5 mmol/L 08/19/2025 10:27 AM [facility] Chloride 104 96 - 110 mmol/L 08/19/2025 10:27 AM [facility] CO2 30 21 - 32 mmol/L 08/19/2025 10:27 AM [facility] Anion Gap 7 3 - 11 08/19/2025 10:27 AM [facility] Glucose 111(H) 70 - 100 mg/dL 08/19/2025 10:27 AM [facility] BUN 16 5 - 25 mg/dL 08/19/2025 10:27 AM [facility] Creatinine 1.23 0.70 - 1.30 mg/dL 08/19/2025 10:27 AM [facility] eGFR 56(L) >=60 mL/min/1. 73m2 08/19/2025 10:27 AM [facility] Comment:Calculation based on the Chronic Kidney Disease Epidemiology Collaboration (CKD-EPI) equation refit without adjustment for race. BUN/Creatinine Ratio 13.0 08/19/2025 10:27 AM [facility] Calcium 8.1(L) 8.5 - 10.5 mg/dL 08/19/2025 10:27 AM [facility] AST (SGOT) 22 10 - 42 unit/L 08/19/2025 10:27 AM [facility] ALT (SGPT) 21 10 - 60 unit/L 08/19/2025 10:27 AM [facility] Alkaline Phosphatase 107 42 - 121 unit/L 08/19/2025 10:27 AM [facility] Total Protein 6.5 6.0 - 8.0 g/dL 08/19/2025 10:27 AM EST [facility] Albumin 3.7 3.2 - 5.0 g/dL 08/19/2025 10:27 AM EST [facility] Total Bilirubin 0.6 0.0 - 1.4 mg/dL 08/19/2025 10:27 AM [facility] Blood Venous blood specimen / Unknown Venipuncture / Unknown 08/19/2025 8:14 AM EST 08/19/2025 8:14 AM EST Joel MARSHALL LAB BLOOD ORDERABLES Kiara chatman Result [facility] [address] [place] [address], * Depression Screening (08/12/2023) [facility] Depression Screening Abstracted Historical Provider HEALTH MAINTENANCE Final Result from Last 3 Months or Most Recently Relevant to Health Maintenance Insurance MEDICARE [facility] Advance Directives Documents on File Type Date Recorded Patient Tool Filer Hand Expl yassine Advance Directives and Adonay g Will 12/08/2024 8:50 AM [facility] Care Teams Plan Consultant Relationship Specialty Start Date End Date Joel Clark PA [address] [place] [address] PCP - General Internal Medicine 03/19/21
== END 2025-09-20 09:35 | disposition home or self-care (01) ==
LOC: HO.HAP 09:34
PROVIDERS: Visit Provider Internal Medicine
DX: Z46.1 Encounter for fitting and adjustment of hearing aid (principal)
CPT/HCPCS: V5014